=== PATIENT | female | born 1995 | race Two or more races ===

== ENCOUNTER 2018-07-21 20:04 | Emergency (ER) | payer SELFPAY ==
[~2018-07-21] VITALS: Ht 160 cm; Wt 74.8 kg
[2018-07-21 20:06] VITALS: BP 123/79
== END 2018-07-21 22:05 | disposition home or self-care (01) ==
LOC: ER 20:06
DX: R00.2 Palpitations (principal); J45.909 Unspecified asthma, uncomplicated
CPT/HCPCS: 71045; 84703; 93005; 99285; A4606; Z7610